=== PATIENT | male | born 2000 | race Caucasian/White ===

== ENCOUNTER 2024-06-04 13:17 | Emergency (ER) | payer BC, SELFPAY ==
[2024-06-04 13:20] VITALS: BP 123/75
[2024-06-04 14:07] VITALS: BMI 32.6
--- NOTE | 2024-06-04 14:10 | ED.GENMED ---
History of Present Illness
<LUIS MIGUEL Babcock - Last Filed: 06/10/24 16:52>
General
Chief Complaint: Breathing Problem
Source: patient
Exam Limitations: none
Time Seen by Provider: 06/04/24 13:59
Nursing documentation reviewed up to this point in time: agreed with
History of Present Illness
History of Present Illness:
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 Mom reports patient had a cough for the past 4 to 5 days. Seen by urgent care on Saturday and
told that he possibly had pneumonia. She reports patient will not complain but she feels that he is having slight difficulty breathing and has a persistent nonproductive cough with no fever.
He is awake alert has no complaints. She reports he has had decreased appetite.
Review of Systems
<LUIS MIGUEL Babcock - Last Filed: 06/10/24 16:52>
Review of Systems
Allergies reviewed?: Yes
Other source history: family
All Other Systems: ROS reviewed and negative except as documented in HPI and ROS
Constitutional: Denies fever
Respiratory: Reports cough and trouble breathing (as per mother )
ABD/GI: Reports anorexia
Musculoskeletal: Reports no symptoms
Skin: Reports no symptoms
Neurological: Reports no symptoms
Hematologic/Lymphatic: Reports no symptoms
Psychiatric: Reports no symptoms
Phy Exam
<LUIS MIGUEL Babcock - Last Filed: 06/10/24 16:52>
General Physical Exam
General Presentation: no apparent distress
General age: appears stated age
General Skin: warm and dry
General Habitus: normal
General Mental: alert
General Hydration: appears well hydrated
Cardiovascular Exam
Cardiovascular Exam: tachycardia
Pulmonary Exam
Pulmonary Exam: lungs clear and no respiratory distress
Neurological Exam
Neurological Exam: alert and oriented x3
Musculoskeletal Exam
Musculoskeletal Exam: full ROM
Skin Exam
Skin Exam: normal color and warm/dry
Psychiatric Exam
Psychiatric Exam: normal mood/affect
Course
<LUIS MIGUEL Babcock - Last Filed: 06/10/24 16:52>
Orders/Labs/Results
Orders:
Orders
06/04/24 14:10
IV Insert/Care/Rem.- Treatment PRN
Albuterol Nebs [Ventolin Nebules] 2.5 mg INH R NOW STA
Chest [CR Chest - 2 Views ] Urgent
Comment:
Reason For Exam: cough
06/04/24 14:22
Complete Blood Count/With Diff Urgent
Comprehensive Metabolic Panel Urgent
06/04/24 15:17
Doxycycline [Vibramycin] 100 mg PO NOW STA
Abnormal Lab Results
06/04/24
14:22
WBC 13.9 H 10^3/uL
(4.8-10.8)
Abs Immat Gran (auto) 0.2 H 10^3/uL
(0-0.05)
Absolute Neuts (auto) 10.7 H 10^3/uL
(1.4-6.5)
Absolute Monos (auto) 0.9 H 10^3/uL
(0.1-0.6)
Immature Gran % 1.5 H %
(0-0.5)
Neutrophils % 76.9 H %
(42.2-75.2)
Lymphocytes % 13.3 L %
(20.5-51.1)
06/04/24 14:22
06/04/24 14:22
Vital Signs
Initial and Last Documented VS:
Initial Vital Signs
Temp Pulse Resp BP Pulse Ox
98.7 F 106 24 123/75 90
06/04/24 13:20 06/04/24 13:20 06/04/24 13:20 06/04/24 13:20 06/04/24 13:20
Last Documented Vital Signs
Temp Pulse Resp BP Pulse Ox
98.6 F 110 22 132/56 91
06/04/24 15:54 06/04/24 15:54 06/04/24 15:54 06/04/24 15:54 06/04/24 15:54
<Missy Ellsworth [employer] - Last Filed: 06/04/24 15:27>
Orders/Labs/Results
Orders:
Orders
06/04/24 14:10
IV Insert/Care/Rem.- Treatment PRN
Albuterol Nebs [Ventolin Nebules] 2.5 mg INH R NOW STA
Chest [CR Chest - 2 Views ] Urgent
Comment:
Reason For Exam: cough
06/04/24 14:22
Complete Blood Count/With Diff Urgent
Comprehensive Metabolic Panel Urgent
06/04/24 15:17
Doxycycline [Vibramycin] 100 mg PO NOW STA
Abnormal Lab Results
06/04/24
14:22
WBC 13.9 H 10^3/uL
(4.8-10.8)
Abs Immat Gran (auto) 0.2 H 10^3/uL
(0-0.05)
Absolute Neuts (auto) 10.7 H 10^3/uL
(1.4-6.5)
Absolute Monos (auto) 0.9 H 10^3/uL
(0.1-0.6)
Immature Gran % 1.5 H %
(0-0.5)
Neutrophils % 76.9 H %
(42.2-75.2)
Lymphocytes % 13.3 L %
(20.5-51.1)
06/04/24 14:22
07/04/24 14:22
Vital Signs
Initial and Last Documented VS:
Initial Vital Signs
Temp Pulse Resp BP Pulse Ox
98.7 F 106 24 123/75 90
06/04/24 13:20 06/04/24 13:20 06/04/24 13:20 06/04/24 13:20 06/04/24 13:20
Last Documented Vital Signs
Temp Pulse Resp BP Pulse Ox
98.6 F 110 22 132/56 91
06/04/24 15:54 06/04/24 15:54 06/04/24 15:54 06/04/24 15:54 06/04/24 15:54
<LUIS MIGUEL Babcock - Last Filed: 06/10/24 16:52>
MDM/Problems Addressed
MDM/Problems Addressed:
Patient is a 23-year-old male with history of panhypopituitarism agenesis of corpus callosum and has difficulty comprehending as per mom. Mom reports patient had a cough for the past several days told by urgent care this chest x-ray 2 days ago is
possibly pneumonia. She reports he seems to have difficulty breathing but is not a complainer. He normally has a good appetite but has had decreased appetite. He presents awake alert no acute distress however minimally hypoxic around 90% on room
air minimally tachycardic. No fever. Patient with crackles breath sounds on the right base. + non prod cough. Will order labs chest x-ray and albuterol neb.
care of pt at this time transfered to LUIS MIGUEL Stark ([id number])
<Missy Ellsworth [employer] - Last Filed: 06/04/24 15:27>
MDM/Problems Addressed
MDM/Problems Addressed:
Patient is a 23-year-old male with history of panhypopituitarism agenesis of corpus callosum and has difficulty comprehending as per mom. Mom reports patient had a cough for the past several days told by urgent care this chest x-ray 2 days ago is
possibly pneumonia. She reports he seems to have difficulty breathing but is not a complainer. He normally has a good appetite but has had decreased appetite. He presents awake alert no acute distress however minimally hypoxic around 90% on room
air minimally tachycardic. No fever. Patient with crackles breath sounds on the right base. + non prod cough. Will order labs chest x-ray and albuterol neb.
care of pt at this time transferred to LUIS MIGUEL Stark ([id number])
3:15 PM received report from Abbi DUBOIS
Chest x-ray: Radiology report read: IMPRESSION:
Low lung volumes and mild interstitial pulmonary opacities. Possibilities include mild interstitial edema or an atypical infectious process.
Patient just finished his nebulization treatment, states he feels a little better.
He is totally nontoxic-appearing, pleasant, in no distress
Prescription for albuterol inhaler sent to his pharmacy
Prescription for doxycycline sent to his pharmacy
Return instructions reviewed with patient and family
Pt ambulated out with normal gait at discharge
<Missy Ellsworth NP - Last Filed: 06/04/24 15:27>
*Critical Care Note
Total Time (30-74mins, 75-104mins- exclusive of procedures): Not Applicable
ED Attending Note
<LUIS MIGUEL Babcock - Last Filed: 06/10/24 16:52>
-
Portions of this chart may have been created with voice recognition software.� Occasional wrong word or��sound alike� substitutions may have occurred due to the inherent limitations of voice recognition software.
Discharge Plan
Departure
Patient Disposition: Home (Routine Discharge)
Date of Disposition: 06/04/24
Time of Disposition: 15:20
Patient with high blood pressure during this ER visit?: No
Condition: Good
Discharge Problem:
Pneumonia
Instructions: Pneumonia
Prescriptions:
New
doxycycline hyclate 100 mg capsule
100 mg PO BID Qty: 20 0RF
albuterol sulfate 90 mcg/actuation HFA aerosol inhaler
2 puff inhalation QID PRN (Reason: shortness of breath or wheezing) Qty: 6.7 0RF
Referrals:
NONE,* [Family Provider] -
Activity Restrictions/Additional Instructions:
As we discussed, I sent a prescription for doxycycline antibiotic and albuterol inhaler to your pharmacy.
Start them tomorrow as you were given a dose here today.
I sent your information to our primary care physician referral contact who will get in touch with you for primary doctor.
Return here over the holiday weekend for fever unrelieved with ibuprofen or Tylenol, vomiting more than once in 1 hour, trouble breathing or feeling sicker in any way.
Interventions
Interventions:
*Risk Screen - Suicide Last Done: 06/04/24 14:15
*General Assessment Last Done: 06/04/24 14:07
*Neglect/Abuse Screening Last Done: 06/04/24 14:15
ED- Fall Risk Assessment Last Done: 06/04/24 14:07
*ED COVID-19 Vaccine History Last Done: 06/04/24 14:07
*Nursing Disposition Last Done: 06/04/24 15:54
ED- Cardiac Assessment Last Done: 06/04/24 14:07
ED- Pulmonary Assessment Last Done: 06/04/24 14:07
Discharge Date and Time
Discharge Date/Time: 06/04/24 15:50
Print Language: VIET[place]ESE
[2024-06-04 14:29] LABS: % Basophils 0.4 % (0-2); % Eosinophils 1.1 % (0-6); % Immature Granulocytes 1.5 % (0-0.5); % Lymphocytes 13.3 % (20.5-51.1); % Monocytes 6.8 % (1.7-9.3); % Neutrophils 76.9 % (42.2-75.2); Absolute Basophils 0.1 10^3/uL (0-0.2); Absolute Eosinophils 0.2 10^3/uL (0-0.7); Absolute Immature Granulocytes 0.2 10^3/uL (0-0.05); Absolute Lymphocytes 1.9 10^3/uL (1.2-3.4); Absolute Monocytes 0.9 10^3/uL (0.1-0.6); Absolute Neutrophils 10.7 10^3/uL (1.4-6.5); Hematocrit 40.4 % (39.0-52.0); Hemoglobin 13.7 g/dL (13.0-18.0); Mean Corp Hgb Conc. 33.9 g/dL (33.0-37.0); Mean Corpuscular Hgb 28.2 pg (27.0-31.0); Mean Corpuscular Volume 83.3 fL (80.0-94.0); Nucleated Red Blood Cells % 0 % (-); Platelet Count 352 10^3/uL (130-400); Red Blood Cell Count 4.85 10^6/uL (4.70-6.10); Red Cell Dist. Width 12.7 % (11.5-14.5); White Blood Cell Count 13.9 10^3/uL (4.8-10.8)
[2024-06-04 14:42] LABS: ALT (SGPT) 36 U/L (0-50); AST (SGOT) 36 U/L (17-59); Albumin 4.3 g/dl (3.5-5.0); Alkaline Phosphatase 55 U/L (38-126); Blood Urea Nitrogen 10 mg/dl (9-20); Calcium 9.4 mg/dl (8.4-10.2); Carbon Dioxide 23 mmol/L (22-30); Chloride 102 mmol/L (98-107); Estimated Creatinine Clearance > 125 ml/min; Glucose 94 mg/dl (70-99); Potassium 4.5 mmol/L (3.5-5.1); Sodium 136 mmol/L (135-145); Total Bilirubin 0.9 mg/dl (0.2-1.3); Total Protein 7.2 g/dl (6.3-8.2); eGFR > 60.00
[2024-06-04] MEDS: VENTOLIN NEBULES 2.5 MG INH (15:10)
[2024-06-04 15:13] VITALS: BP 129/71
[2024-06-04] MEDS: VIBRAMYCIN 100 MG PO (15:39)
[2024-06-04 15:41] VITALS: BP 132/56
--- NOTE | 2024-06-04 15:53 | EDRN ---
Reviewed discharge instructions with patient and his parents. Verbalized understanding. Ambulated with steady gait to the [facility].
[2024-06-04 15:54] VITALS: BP 132/56
== END 2024-06-04 15:50 | disposition home or self-care (01) ==
LOC: EMR 13:17
PROVIDERS: Nurse Practitioner; EMERGENCY PHYSICIAN Emergency Medicine
DX: J18.9 Pneumonia, unspecified organism (principal)
CPT/HCPCS: 99284; 94640; 71046; 80053; 85025

== ENCOUNTER → 2024-09-03 11:01 | Outpatient (REF) | payer BC, SELFPAY | LOC: HWRAD 11:01 | PROVIDERS: ATTENDING PHYSICIAN Nurse Practitioner Family | DX: Z87.01 Personal history of pneumonia (recurrent) (principal) | CPT/HCPCS: 71046 ==